=== PATIENT | male | born 1980 | race African-American/Black ===

== ENCOUNTER 2018-09-27 13:34 | Emergency (ER) | payer SELFPAY ==
[~2018-09-27] VITALS: Ht 172.7 cm; Wt 59.0 kg
[2018-09-27 14:18] LABS: BASO % 1 % (0-3); EOS # 0.1 x10^3/uL (0.0-0.7); EOS % 1 % (0-3); HEMATOCRIT 40.2 % (39.0-53.0); HEMOGLOBIN 13.8 g/dL (13.0-17.5); LYMPH # 2.4 x10^3/uL (1.0-4.8); LYMPH % 25 % (24-48); MEAN CORPUSCULAR HEMOGLOBIN 34 pg (25-35); MEAN CORPUSCULAR HGB CONC 34 g/dL (31-37); MEAN CORPUSCULAR VOLUME 100 fL (79-100); MONO % 11 % (0-9); NEUT # 5.9 x10^3uL (1.8-7.7); NEUT % 63 % (31-73); PLATELET COUNT 172 x10^3/uL (140-400); RED BLOOD COUNT 4.03 x10^6/uL (4.30-5.70); RED CELL DISTRIBUTION WIDTH 12.8 % (11.5-14.5); WHITE BLOOD COUNT 9.5 x10^3/uL (4.0-11.0)
--- NOTE | 2018-09-27 14:32 | PHYS DOC ---
Past Medical History Past Medical History: No Pertinent History Alcohol Use: Occasionally Drug Use: Marijuana, Other Social History Narrative: ECSTACY. Adult General Chief Complaint Chief Complaint: SUBSTANCE ABUSE HPI HPI Patient is a 38 year old male who presents with complaining of ecstasy abuse. Patient states he took 8 pills of ecstasy yesterday without having any negative feeling but his family wanted he stopped taking drug. Patient requesting rehabilitation for stopping drugs and having clean life. Patient states he takes ecstasy every day since last month. Patient denies suicidal and homicidal ideation and hallucination. Patient had mental hospitalization. Patient had history of depression on Zoloft but does not take medication anymore. Review of Systems Review of Systems Constitutional: Denies fever or chills [] Eyes: Denies change in visual acuity, redness, or eye pain [] HENT: Denies nasal congestion or sore throat [] Respiratory: Denies cough or shortness of breath [] Cardiovascular: No additional information not addressed in HPI [] GI: Denies abdominal pain, nausea, vomiting, bloody stools or diarrhea [] : Denies dysuria or hematuria [] Musculoskeletal: Denies back pain or joint pain [] Integument: Denies rash or skin lesions [] Neurologic: Denies headache, focal weakness or sensory changes [] Endocrine: Denies polyuria or polydipsia [] All other systems were reviewed and found to be within normal limits, except as documented in this note. Physical Exam Physical Exam Constitutional: Well nourished, no acute distress, non-toxic appearance. [] HENT: Normocephalic, atraumatic. Eyes: PERRLA, EOMI, conjunctiva normal, no discharge. [] Neck: Normal range of motion, no tenderness, supple, no stridor. [] Cardiovascular:Heart rate regular rhythm, no murmur [] Lungs & Thorax: Bilateral breath sounds clear to auscultation [] Abdomen: Bowel sounds normal, soft, no tenderness, no masses, no pulsatile masses. [] Skin: Warm, dry, no erythema, no rash. [] Back: No tenderness, no CVA tenderness. [] Extremities: No tenderness, no cyanosis, no clubbing, ROM intact, no edema. [] Neurologic: Alert and oriented X 3, normal motor function, normal sensory function, no focal deficits noted. [] Psychologic: Affect normal, judgement normal, mood normal. [] Current Patient Data Vital Signs Vital Signs Date Time Temp Pulse Resp B/P (MAP) Pulse Ox O2 Delivery O2 Flow Rate FiO2 09/27/18 13:52 98.5 84 16 135/84 (101) 98 Room Air 98.5 Lab Values Laboratory Tests Test 09/27/18 14:05 09/27/18 15:00 White Blood Count 9.5 x10^3/uL (4.0-11.0) Red Blood Count 4.03 x10^6/uL (4.30-5.70) L Hemoglobin 13.8 g/dL (13.0-17.5) Hematocrit 40.2 % (39.0-53.0) Mean Corpuscular Volume 100 fL (79-100) Mean Corpuscular Hemoglobin 34 pg (25-35) Mean Corpuscular Hemoglobin Concent 34 g/dL (31-37) Red Cell Distribution Width 12.8 % (11.5-14.5) Platelet Count 172 x10^3/uL (140-400) Neutrophils (%) (Auto) 63 % (31-73) Lymphocytes (%) (Auto) 25 % (24-48) Monocytes (%) (Auto) 11 % (0-9) H Eosinophils (%) (Auto) 1 % (0-3) Basophils (%) (Auto) 1 % (0-3) Neutrophils # (Auto) 5.9 x10^3uL (1.8-7.7) Lymphocytes # (Auto) 2.4 x10^3/uL (1.0-4.8) Monocytes # (Auto) 1.0 x10^3/uL (0.0-1.1) Eosinophils # (Auto) 0.1 x10^3/uL (0.0-0.7) Basophils # (Auto) 0.0 x10^3/uL (0.0-0.2) Sodium Level 136 mmol/L (136-145) Potassium Level 3.4 mmol/L (3.5-5.1) L Chloride Level 99 mmol/L (98-107) Carbon Dioxide Level 23 mmol/L (21-32) Anion Gap 14 (6-14) Blood Urea Nitrogen 32 mg/dL (8-26) H Creatinine 1.8 mg/dL (0.7-1.3) H Estimated GFR (Cockcroft-Gault) 51.4 Glucose Level 102 mg/dL (70-99) H Calcium Level 10.3 mg/dL (8.5-10.1) H Magnesium Level 1.8 mg/dL (1.8-2.4) Total Bilirubin 2.5 mg/dL (0.2-1.0) H Direct Bilirubin 0.4 mg/dL (0.0-0.2) H Aspartate Amino Transferase (AST) 80 U/L (15-37) H Alanine Aminotransferase (ALT) 33 U/L (16-63) Alkaline Phosphatase 85 U/L (46-116) Total Protein 8.3 g/dL (6.4-8.2) H Albumin 4.3 g/dL (3.4-5.0) Ethyl Alcohol Level < 10 mg/dL (0-10) Urine Collection Type Unknown Urine Color Cathie Urine Clarity Cloudy Urine pH 5.0 Urine Specific [place] 1.025 Urine Protein 30 mg/dL (NEG-TRACE) Urine Glucose (UA) Negative mg/dL (NEG) Urine Ketones (Stick) 15 mg/dL (NEG) Urine Blood Negative (NEG) Urine Nitrite Negative (NEG) Urine Bilirubin Moderate (NEG) Urine Urobilinogen Dipstick 1.0 mg/dL (0.2 mg/dL) Urine Leukocyte Esterase Trace (NEG) Urine RBC Occ /HPF (0-2) Urine WBC 5-10 /HPF (0-4) Urine Bacteria 0 /HPF (0-FEW) Urine Hyaline Casts Many /HPF Urine Mucus Marked /LPF Urine Sperm Present /HPF Urine Opiates Screen Neg (NEG) Urine Methadone Screen Neg (NEG) Urine Barbiturates Neg (NEG) Urine Phencyclidine Screen Neg (NEG) Urine Amphetamine/Methamphetamine Pos (NEG) Urine Benzodiazepines Screen Neg (NEG) Urine Cocaine Screen Neg (NEG) Urine Cannabinoids Screen Pos (NEG) Urine Ethyl Alcohol Neg (NEG) Laboratory Tests 09/27/18 14:05 Laboratory Tests 09/27/18 14:05 EKG EKG [] Radiology/Procedures Radiology/Procedures [] Course & Med Decision Making Course & Med Decision Making Pertinent Labs reviewed. (See chart for details) Evaluation of patient in ER showed 38-year-old male patient presented to ecstasy abuse and wants rehabilitation. Patient did not have suicidal or homicidal ideation and had unremarkable physical exam. Labs showed renal insufficiency and UTI and elevation of liver function tests. UDS was positive for marijuana and m ethamphetamine. Patient was informed about this result and needs to quit using drugs and follow up with rehabilitation. Resources was provided. I've spoken with the patient and/or caregivers. I've explained the patient's condition, diagnosis and treatment plan based on information available to me at this time. I've answered the patient's and/or caregivers questions and addressed any concerns. The patient and/or caregivers have a good understanding the patient's diagnosis, condition and treatment plan as can be expected at this point. Vital signs have been stabilized. The patient's condition is stable for discharge from the emergency department. The patient will pursue further outpatient evaluation with her primary care provider or other designated consulting physician as outlined in the discharge instructions. Patient and/or caregivers are agreeable to this plan of care and follow-up instructions have been explained in detail. The patient and/or caregivers have received these instructions in written format and expressed understanding of these discharge instructions. The patient and her caregivers are aware that if any significant change in condition or worsening of symptoms should prompt him to immediately return to this of the closest emergency department. If an emergent department is not readily available I would encourage him to call 911. Dragon Disclaimer Dragon Disclaimer This electronic medical record was generated, in whole or in part, using a voice recognition dictation system. Departure Departure Impression: Primary Impression: Polysubstance abuse Additional Impressions: Renal insufficiency Urinary tract infection Elevated liver function tests Tobacco abuse Tobacco abuse counseling Disposition: HOME, SELF-CARE Condition: STABLE Referrals: NON,STAFF (PCP) Patient Instructions: Chronic Renal Insufficiency, Smoking Cessation, Tips For Success, Substance Abuse-Brief, Urinary Tract Infection Additional Instructions: Drink plenty of liquids Follow-up with your primary care physician in 3-5 days Return to ER if not getting better Scripts Ciprofloxacin Hcl (CIPRO) 250 Mg Tablet 1 TAB PO BID for infection, #14 TAB Prov: ANETA CAMARENA MD 09/27/18 Problem Qualifiers Additional Impressions: Urinary tract infection Urinary tract infection type: site unspecified Hematuria presence: without hematuria Qualified Codes: N39.0 - Urinary tract infection, site not s pecified ANETA CAMARENA MD September 27, 2018 14:32
[2018-09-27 14:39] LABS: CALCIUM 10.3 mg/dL (8.5-10.1); CREATININE 1.8 mg/dL (0.7-1.3); GFR 51.4; POTASSIUM 3.4 mmol/L (3.5-5.1)
[2018-09-27 14:46] LABS: ALBUMIN 4.3 g/dL (3.4-5.0); DIRECT BILIRUBIN 0.4 mg/dL (0.0-0.2); MAGNESIUM 1.8 mg/dL (1.8-2.4); TOTAL BILIRUBIN 2.5 mg/dL (0.2-1.0); TOTAL PROTEIN 8.3 g/dL (6.4-8.2)
[2018-09-27 15:21] LABS: BILIRUBIN,URINE MODERATE (NEG); CLARITY,URINE CLOUDY; COLOR,URINE AMBER; NITRITE,URINE NEGATIVE (NEG); PROTEIN,URINE 30 mg/dL (NEG-TRACE)
[2018-09-27 15:27] LABS: BARBITURATES NEG (NEG); BENZODIAZEPINES NEG (NEG); CANNABINOIDS POS (NEG); COCAINE NEG (NEG); METHADONE NEG (NEG); OPIATES NEG (NEG); PHENCYCLIDINE NEG (NEG)
[2018-09-27 15:32] LABS: HYALINE CASTS, URINE MANY /HPF
[2018-09-27 15:33] LABS: BACTERIA,URINE 0 /HPF (0-FEW)
[2018-09-27 15:34] LABS: AMPHETAMINE/METHAMPHETAMINE POS (NEG); RBC,URINE OCC /HPF (0-2); SPERM,URINE PRESENT /HPF
[2018-09-27] MEDS ORDERED: CIPR250T30 PO (15:49)
[2018-09-27 16:00] VITALS: BP 146/98
== END 2018-09-27 16:05 | disposition home or self-care (01) ==
LOC: ER 13:34
DX: F19.10 Other psychoactive substance abuse, uncomplicated (principal); N28.9 Disorder of kidney and ureter, unspecified; N39.0 Urinary tract infection, site not specified; R79.89 Other specified abnormal findings of blood chemistry; Z71.6 Tobacco abuse counseling
CPT/HCPCS: 36415; 80048; 80076; 80307; 81001; 83735; 85025; 99284; G0480

== ENCOUNTER 2019-05-10 09:41 | Emergency (ER) | payer MEDICARE, OTHER ==
[~2019-05-10] VITALS: Ht 162.6 cm; Wt 61.7 kg
[~2019-05-10 09:41] MED LIST: CIPR250T30 PO
[2019-05-10 09:57] VITALS: BP 132/83
--- NOTE | 2019-05-10 10:20 | PHYS DOC ---
Past Medical History Past Medical History: No Pertinent History Past Surgical History: No Surgical History Alcohol Use: None Drug Use: None Adult General Chief Complaint Chief Complaint: FACE PROBLEM HPI HPI Patient is a 38 year old male who presents with a cyst to the right side of his face this been there for year. The patient came to the ER to have the cyst removed. Denies fevers or increased pain. Review of Systems Review of Systems Constitutional: Denies fever or chills [] Eyes: Denies change in visual acuity, redness, or eye pain [] HENT: Denies nasal congestion or sore throat [] Respiratory: Denies cough or shortness of breath [] Cardiovascular: No additional information not addressed in HPI [] : Denies dysuria or hematuria [] Musculoskeletal: Denies back pain or joint pain [] Integument: Reports Cyst to right face. Neurologic: Denies headache, focal weakness or sensory changes [] Complete systems were reviewed and found to be within normal limits, except as documented in this note. Physical Exam Physical Exam Constitutional: Well developed, well nourished, no acute distress, non-toxic appearance. [] HENT: Normocephalic, atraumatic, bilateral external ears normal, oropharynx moist, no oral exudates, nose normal. [] Eyes: PERRLA, EOMI, conjunctiva normal, no discharge. [] Neck: Normal range of motion, no tenderness, supple, no stridor. [] Skin: Round Cyst to R side of face. Neurologic: Alert and oriented X 3, normal motor function, normal sensory function, no focal deficits noted. [] Psychologic: Affect normal, judgement normal, mood normal. [] Current Patient Data Vital Signs Vital Signs Date Time Temp Pulse Resp B/P (MAP) Pulse Ox O2 Delivery O2 Flow Rate FiO2 05/10/19 09:57 98.0 77 20 132/83 (99) 98 Room Air 98.0 EKG EKG [] Radiology/Procedures Radiology/Procedures [] Course & Med Decision Making Course & Med Decision Making Pertinent Labs and Imaging studies reviewed. (See chart for details) Discussed with patient that we do not remove these cysts in the ER. Discussed that he needs to obtain a primary care doctor and be referred to a plastic surgeon. Dragon Disclaimer Dragon Disclaimer This electronic medical record was generated, in whole or in part, using a voice recognition dictation system. Departure Departure Impression: Primary Impression: Cyst of face Disposition: HOME, SELF-CARE Condition: STABLE Referrals: NO PCP (PCP) Additional Instructions: Thank you for visiting [facility]. We appreciate you trusting us with your care. If any additional problems come up don't hesitate to return to visit us. Please follow up with your primary care provider so they can plan additional care if needed and know about the problem that you had. If symptoms worsen come back to the Emergency Department. Any concerning symptoms that start such as chest pain, shortness of air, weakness or numbness on one side of the body, running high fevers or any other concerning symptoms return to the ER. ZULAY TY APRN May 10, 2019 10:20
== END 2019-05-10 10:29 | disposition home or self-care (01) ==
LOC: ER 09:41
DX: L72.3 Sebaceous cyst (principal)
CPT/HCPCS: 99281

== ENCOUNTER → 2020-02-01 | Outpatient (CLI) | payer OTHER | END | disposition home or self-care (01) | LOC: LAB 13:04 | PROVIDERS: ATTEND Specialist | DX: Z01.812 Encounter for preprocedural laboratory examination (principal); Z20.828 Contact with and (suspected) exposure to other viral communicable diseases; R22.0 Localized swelling, mass and lump, head | CPT/HCPCS: U0003-CS ==

== ENCOUNTER → 2020-02-07 | Day surgery (SDC) | payer MEDICARE, OTHER ==
[~2020-02-07] MED LIST changes: +LIDOCAINE 1%/EPI 1:100,000 20 ML VIAL. INJ ONE
--- NOTE | 2020-02-07 06:44 | PREOP HP ---
DATE OF SERVICE: 02/07/2020 HISTORY OF PRESENT ILLNESS: The patient comes in to my office because of a mass of the right side of the face. It is getting larger and he wishes it to be removed. PAST MEDICAL HISTORY: Negative. He has had normal childhood diseases. No surgery. ALLERGIES: No allergies. MEDICATIONS: No diseases and takes no medication for anything. FAMILY HISTORY: Noncontributory. REVIEW OF SYSTEMS: All negative except for this mass to the right face. He denies taking any anticoagulants or other medicines as stated before. PHYSICAL EXAMINATION: GENERAL: Shows an alert male, in no acute distress. HEAD, EYES, EARS, NOSE AND THROAT: Grossly normal. CHEST: Clear to auscultation and percussion bilaterally. HEART: Unremarkable. ABDOMEN: Grossly normal. EXTREMITIES: Grossly normal. SKIN: Examination of the skin of the face does show just lateral to the eye at the side of the face, there is about a 4 cm mass. It appears to be nontender and not red, but definitely very large, about the size of a golf ball. As stated before, it is nontender. There is no evidence of any inflammation or infection. IMPRESSION: Mass of the right face. There may be some psychological overlie which I am not aware of in this patient. RANJANA GRIFFIN MD DR: QUEENIE/osvaldo JOB#: [id number] / [id number]
--- NOTE | 2020-02-07 10:27 | PDOC ---
SURGICAL PROGRESS NOTE DATE: 02/07/20 TIME: 10:21 Subjective Op Note: Surgeon.............................................Jaxson Pre op diag........................................mass rigth face Post op diag......................................same 5 cm Anesthesia........................................1% lidocaine with epi Procedure..........................................exc mass right face which involved the muscle and was deep Blood loss.........................................7cc Drains...............................................none fluids.................................................none Condition...........................................satisfactory RANJANA GRIFFIN MD Feb 07, 2020 10:27
--- NOTE | 2020-02-07 22:39 | OP ---
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 POSTOPERATIVE DIAGNOSIS: Tumor of the left face. ANESTHESIA: Lidocaine 1% with epinephrine. PROCEDURE: Excision of tumor, right face. TECHNIQUE: Under local anesthesia using 1% Xylocaine, the lesion was noted to be at the left face. It was about jail between the ear and the eye and was about 4 cm or more in size. As such, it was decided to do a transverse incision for cosmetic result, it would look better, and also we could the tumor lay in that direction more. As such, the area of the skin was anesthetized with 1% lidocaine and epinephrine and a fusiform portion over the mass was removed, so we would not have redundant skin and this mass was quite large. We made a fusiform incision, went through the skin with a 15 blade and then laterally went into the subcutaneous. We then identified the mass and stayed away from it using Metzenbaum scissors for most of the dissection. The lesion did go deep and some of the fascia down to the fascia. The mass was slowly removed from the surrounding tissues using Metzenbaum scissors and bleeding was controlled with pressure; on one or two occasions, cautery was used. The lesion was slowly removed from its attachments deep and slowly excised from the patient. This was then sent to pathology. The defect was quite large and we decided to then close it. We used 4-0 and 5-0 Vicryl interrupted sutures, taking the deep dermis and also sutured it to the underlying skin tying this and got the wound closed. We then actually put skin sutures and 6-0 nylon to effect tight closure that would be cosmetically acceptable. It should be noted the wound was irrigated before it was closed and all bleeding was stopped. The procedure was now terminated as sterile dressing was applied. The blood loss was about 7 mL. Fluids given can be obtained were none. No drains were used and the condition of the patient was satisfactory as he has returned to the holding area. SUDHEER GRIFFIN MD DR: QUEENIE/osvaldo JOB#: [id number] / [id number]
--- NOTE | 2020-02-09 15:08 | PATHOLOGY ---
[facility] Accession Number: [id number] . 01 Material submitted: . face - MASS RIGHT SIDE FACE. Modifiers: right . 02 Diagnosis: Skin and subcutaneous tissue, mass right side of face: - Epidermal inclusion cyst. (JPM:yana; 02/09/2020) S 02/09/2020 0830 Local . 02 Comment: There is no evidence of malignancy. (JPM:yana; 02/09/2020) . 02 Electronically signed: . Henrique Curtis MD, Pathologist NPI- [id number] . 01 Gross description: . The specimen is received in formalin, labeled "Reed Lambert, mass R side face". Received is an ellipse of driver-brown skin with attached underlying soft tissue measuring 3.7 x 2.1 x 1.8 cm in greatest dimensions. Sectioning reveals a unilocular cystic structure measuring 1.8 cm filled with pale-zhang friable material. The specimen is submitted representatively in cassette A1. (CAA; 02/08/2020) QAC/QA 02/09/2020 0843 Local . 02 Pathologist provided ICD-10: L72.0 . 02 CPT . 002033 Specimen Comment: A courtesy copy of this report has been sent to [phone] Specimen Comment: Report sent to Performed at: 01 [facility] [address] [facility] [address], [place] [id number] MD Keyshawn Singleton MD Phone: [phone] Performed at: 02 [facility] [address] [place], [place] [id number] MD Henrique Curtis MD Phone: [phone]
== END | disposition home or self-care (01) ==
LOC: SURG 08:42
PROVIDERS: ATTEND Specialist
DX: D49.89 Neoplasm of unspecified behavior of other specified sites (principal); L72.0 Epidermal cyst
CPT/HCPCS: 11406; 88304; J3490

== ENCOUNTER 2020-02-15 12:57 | Emergency (ER) | payer MEDICARE, OTHER ==
[~2020-02-15] VITALS: Ht 172.7 cm; Wt 75.0 kg
[~2020-02-15 12:57] MED LIST changes: -LIDOCAINE 1%/EPI 1:100,000 20 ML VIAL. INJ ONE
[2020-02-15 13:31] VITALS: BP 127/97
--- NOTE | 2020-02-15 13:37 | PHYS DOC ---
Past Medical History Past Medical History: No Pertinent History Past Surgical History: No Surgical History Smoking Status: Current Every Day Smoker Alcohol Use: None Drug Use: None General Adult EDM: Chief Complaint: SUTURE/STAPLE REMOVAL HPI: HPI: Patient is a 39 year old male who had 8 stitches placed on his face 1 week ago. Patient is here for suture removal. Patient has no complaints. Review of Systems: Review of Systems: Constitutional: Denies fever or chills. [] Eyes: Denies change in visual acuity. [] HENT: Denies nasal congestion or sore throat. [] Respiratory: Denies cough or shortness of breath. [] Cardiovascular: Denies chest pain or edema. [] GI: Denies abdominal pain, nausea, vomiting, bloody stools or diarrhea. [] : Denies dysuria. [] Musculoskeletal: Denies back pain or joint pain. [] Integument: Denies rash. [] Neurologic: Denies headache, focal weakness or sensory changes. [] Endocrine: Denies polyuria or polydipsia. [] Lymphatic: Denies swollen glands. [] Psychiatric: Denies depression or anxiety. [] Heart Score: Risk Factors: Risk Factors: DM, Current or recent (<one month) smoker, HTN, HLP, family history of CAD, obesity. Risk Scores: Score 0 - 3: 2.5% MACE over next 6 weeks - Discharge Home Score 4 - 6: 20.3% MACE over next 6 weeks - Admit for Clinical Observation Score 7 - 10: 72.7% MACE over next 6 weeks - Early Invasive Strategies Allergies: Allergies: Allergies Coded Allergies Type Severity Reaction Last Updated Verified No Known Drug Allergies 02/07/20 No Physical Exam: PE: Constitutional: Well developed, well nourished, no acute distress, non-toxic appearance. [] HENT: Healing laceration to the right cheek, no signs of infection Eyes: PERRLA, EOMI, conjunctiva normal, no discharge. [] Neck: Normal range of motion, no tenderness, supple, no stridor. [] Cardiovascular:Heart rate regular rhythm, Lungs & Thorax: Bilateral breath sounds clear\ Abdomen:, soft, no tenderness, no masses, no pulsatile masses. [] Skin: Warm, dry, no erythema, no rash. [] Healing laceration of the right cheek, no signs of infection Back: No tenderness, no CVA tenderness. [] Extremities: No tenderness, no cyanosis, no clubbing, ROM intact, no edema. [] Neurologic: Alert and oriented X 3, normal motor function, normal sensory function, no focal deficits noted. [] Psychologic: Affect normal, judgement normal, mood normal. [] Current Patient Data: Vital Signs: Vital Signs Date Time Temp Pulse Resp B/P (MAP) Pulse Ox O2 Delivery O2 Flow Rate FiO2 02/15/20 13:31 98.2 79 18 127/97 (107) 98 Room Air 98.2 EKG: EKG: [] Radiology/Procedures: Radiology/Procedures: [] Course & Med Decision Making: Course & Med Decision Making Pertinent Labs and Imaging studies reviewed. (See chart for details) [] 39-year-old here for suture removal. No complications. Nurse instructed to remove the stitches. Patient stable for discharge Dragon Disclaimer: OTI [employer] Disclaimer: This electronic medical record was generated, in whole or in part, using a voice recognition dictation system. Departure Departure Impression: Primary Impression: Visit for suture removal Disposition: 01 DC HOME SELF CARE/HOMELESS Condition: STABLE Referrals: NO PCP (PCP) Patient Instructions: Suture Removal-Brief Additional Instructions: EMERGENCY DEPARTMENT GENERAL DISCHARGE INSTRUCTIONS THANK YOU for coming to [facility] Emergency Department (ED) today and trusting us with your care. We trust that you had a positive experience in our Emergency Department. If you wish to speak to the department Management you can contact the emergency department coordinator at . YOUR FOLLOW UP INSTRUCTIONS ARE FOLLOWS: Do you have a private doctor? If you do not have a private doctor, please ask for a resource list of physicians or clinics that may be able to assist you with follow up care. The Emergency Physician has interpreted your x-rays. The X-ray specialist will also review them. If there is a change in the findings you will be notified in 48 hours when at all possible. A lab test or lab culture may have been done, your results will be reviewed and you will be notified if you need a change in treatment. ADDITIONAL INSTRUCTIONS AND INFORMATION Your care today has been supervised by a physician who is specially trained in emergency care. Many problems require more than one evaluation for a complete diagnosis and treatment. We recommend that you schedule your follow up appointment as recommended to ensure complete treatment of your illness or injury. If you are unable to obtain follow up care and continue to have a problem, or if your condition worsens we recommend that you return to the ED. We are not able to safely determine your condition over the phone nor are we able to give sound medical advice over the phone. For these safety reasons, if you call for medical advice we will ask you to come to the ED for further evaluation If you have any questions regarding these discharge instructions please call the ED at . SAFETY INFORMATION In the interest of safety, wellness, and injury prevention; we encourage you to wear your seatbelt, if you smoke; quit smoking, and we encourage your family to use protec tive helmet for bicycling and other sporting events that present an increased risk for head injury. IF YOUR SYMPTOMS WORSEN OR NEW SYMPTOMS DEVELOP, OR YOU HAVE CONCERNS ABOUT YOUR CONDITION; OR IF YOUR CONDITION WORSENS WHILE YOU ARE WAITING FOR YOUR FOLLOW UP APPOINTMENT; EITHER CONTACT YOUR PRIMARY CARE DOCTOR, THE PHYSICIAN WHOSE NAME AND NUMBER YOU WERE GIVEN, OR RETURN TO THE ED IMMEDIATELY. DASHAWN SUNSHINE MD Feb 15, 2020 13:37
== END 2020-02-15 13:50 | disposition home or self-care (01) ==
LOC: ER 12:57
DX: S01.412D Laceration without foreign body of left cheek and temporomandibular area, subsequent encounter (principal); F17.200 Nicotine dependence, unspecified, uncomplicated; X58.XXXD Exposure to other specified factors, subsequent encounter
CPT/HCPCS: 99281